=== PATIENT | male | born 1950 | race Caucasian/White ===

== ENCOUNTER → 2019-11-29 | Outpatient (CLI) | payer OTHER ==
--- NOTE | 2019-11-29 21:53 | NUR ---
LEVOTHYROXINE,AMLODIPINE,BESYLATE ROSUVASTATIN,FISHOIL,ASPIRIN,LIPOTRIAD,MENSSILVERCENTRUM,FOLICACID Addendum: 11/29/19 at 2207 by JOSEPH VAN Amended: Links added.
== END | disposition home or self-care (01) ==
LOC: SLP 20:18
PROVIDERS: ATTEND Internal Medicine
DX: G47.33 Obstructive sleep apnea (adult) (pediatric) (principal)
CPT/HCPCS: 95810

== ENCOUNTER → 2019-12-08 | Outpatient (CLI) | payer OTHER | END | disposition home or self-care (01) | LOC: SLP 20:37 | PROVIDERS: ATTEND Internal Medicine | DX: G47.33 Obstructive sleep apnea (adult) (pediatric) (principal) | CPT/HCPCS: 95811 ==